=== PATIENT | female | born 1995 | race Caucasian/White ===

== ENCOUNTER 2016-07-13 18:04 | Emergency (ER) | payer BC ==
[~2016-07-13] VITALS: Ht 160 cm; Wt 64.5 kg
--- OUTSIDE RECORDS SUMMARY | 2016-07-13 18:09 | XMS REPORT | Summary of Care ---
Author Author Dejuan Pereyra M.D. Organization Unknown Address [address], [place] [id number] Phone Unavailable Care Team Providers Care Lead Setter Name Role Phone Rad Pereyra M.D. Unavailable Unavailable Marcin Nickerson PP Unavailable Unavailable Unavailable Functional Status Functional Status Health Issues* Name Dates Details Functional status health issues are not documented Status: Cognitive Status Health Issues* Name Dates Details Cognitive status health issues are not documented Status: Problems Name Dates Details control (V25.9, Z30.9) Status: Active Dizziness (780.4, R42) Status: Active Cellulitis (682.9, L03.90) Status: Active Depression (311, F32.9) Status: Active Contraceptive management (V25.9, Z30.9) Status: Active Dysuria (788.1, R30.0) Status: Active PID (acute pelvic inflammatory disease) (614.3, N73.0) Status: Active Pelvic pain (R10.2) Status: Active Encounter for prescription for intravaginal contraceptive (V25.49, Z30.018) Status: Active Urinary frequency (788.41, R35.0) Status: Active Medications Name Dates Details NuvaRing 0.12-0.015 MG/24HR Vaginal Ring INSERT 1 RING VAGINALLY FOR 3 WEEKS THEN 1 WEEK OFF. Quantity: 1 Dejuan Pereyra M.D.* Started 19-Apr-2015 Active Allergies and Adverse Reactions Name Dates Details No Known Drug Allergies Status: Active Procedures Procedure Dates Details Procedures not documented Immunization Name Dates Details Hepatitis B Administered on:1996 DTaP Administered on:1996 Hepatitis B Administered on:1996 IPV Administered on:1996 IPV Administered on:1996 DTaP Administered on:1996 DTaP Administered on:1996 Hepatitis B Administered on:1996 DTaP Administered on:16-Feb-1997 MMR Administered on:16-Feb-1997 DTaP Administered on:02-Jan-2001 IPV Administered on:02-Jan-2001 MMR Administered on:02-Jan-2001 Varicella Administered on:02-Jan-2001 Tdap (Adacel) Lot #: [id number] Administered on:01-Dec-2013 Family History Grandmother* Name Dates Details Family history of malignant neoplasm of kidney (V16.51, Z80.51) Status: Active Mother* Name Dates Details No pertinent family history Status: Active Social History Name Dates Details Smoking Status* Never smoker Vital Signs Date Test Result Details No Known Vitals to report Results Date Description Value Details Results not documented Plan of Care Planned Observations* Name Dates Details Planned Goals not documented Goal Planned Encounters* Appointment; Provider: Schedule Radiology On 11-Apr-2015 10:00 Instructions * Instructions not documented Encounters Appointment; Zane Drummond Encounter Diagnosis: Problem not documented On 26-Apr-2015 13:00 Appointment; Dejuan Pereyra Encounter Diagnosis: Problem not documented On 11-Apr-2015 11:00 Appointment; Dhruv Nickerson Encounter Diagnosis: Problem not documented On 03-Apr-2015 15:00 Appointment; Dhruv Nickerson Encounter Diagnosis: Problem not documented On 15-Mar-2015 14:45 Appointment; Dhruv Nickerson Encounter Diagnosis: Problem not documented On 07-Feb-2015 11:15 Appointment; Dhruv Nickerson Encounter Diagnosis: Problem not documented On 11-Jan-2015 14:45 Appointment; Dhruv Nickerson Encounter Diagnosis: Problem not documented On 13:45 Appointment; Dejuan Pereyra Encounter Diagnosis: Problem not documented On 22-Feb-2014 10:15 Appointment; Dejuan Pereyra Encounter Diagnosis: Problem not documented On 18-Jan-2014 10:15 Appointment; Dejuan Pereyra Encounter Diagnosis: Problem not documented On 05-Jan-2014 15:30 Appointment; Dejuan Pereyra Encounter Diagnosis: Problem not documented On 29-Dec-2013 15:30 Appointment; Dejuan Pereyra Encounter Diagnosis: Problem not documented On 15-Dec-2013 11:00 Appointment; Dejuan Pereyra Encounter Diagnosis: Problem not documented On 08-Dec-2013 15:30 Appointment; Dejuan Pereyra Encounter Diagnosis: Problem not documented On 01-Dec-2013 11:15 Appointment; Dejuan Pereyra Encounter Diagnosis: Problem not documented On 25-Nov-2013 13:00 Appointment; Dejuan Pereyra Encounter Diagnosis: Problem not documented On 09-Nov-2013 13:00 Appointment; Dejuan Pereyra Encounter Diagnosis: Problem not documented On 14:15 Appointment; Dejuan Pereyra Encounter Diagnosis: Problem not documented On 10:30 Appointment; Dejuan Pereyra Encounter Diagnosis: Problem not documented On 13:00 Appointment; Dejuan Pereyra Encounter Diagnosis: Problem not documented On 10:00
--- OUTSIDE RECORDS SUMMARY | 2016-07-13 18:09 | XMS REPORT | Summary of Care ---
Author Author Dhruv Nickerson M.D. Organization Unknown Address [address], [place] [id number] Phone Unavailable Care Team Providers Care Welfare Eligibility Interviewer Name Role Phone Dhruv Nickerson M.D. Unavailable Unavailable Marcin Nickerson PP Unavailable [...] pelvic inflammatory disease) (614.3, N73.0) Status: Active Medications Name Dates Details Loestrin 1/20 (21) 1-20 MG-MCG Oral Tablet TAKE 1 TABLET DAILY. Quantity: 1 Dhruv Nickerson M.D.* Started 11-Jan-2015 [id number] Tablet Disp Pack (5 Disp Packs) Sertraline HCl - 50 MG Oral Tablet TAKE 1 TABLET DAILY DIRECTED. * Quantity: 30 Refills: 3 Dhruv Nickerson M.D.* Started 11-Jan-2015 ActiveDoxycycline Hyclate 100 MG Oral Capsule TAKE 1 CAPSULE EVERY 12 HOURS DAILY. * Quantity: 20 Refills: 0 Dhruv Nickerson M.D.* Started 07-Feb-2015 Active Allergies and Adverse Reactions Name Dates Details No Known Drug Allergies Status: Active Procedures Procedure Dates Details Urine Chlamydia/GC TMA Assay [id number] Ordered:07-Feb-2015 Immunization Name Dates Details Hepatitis B Administered on:1996 DTaP Administered on:1996 Hepatitis B Administered on:1996 IPV Administered on:1996 IPV Administered on:1996 DTaP Administered on:1996 DTaP Administered on:1996 Hepatitis B Administered on:1996 DTaP Administered on:16-Feb-1997 MMR Administered on:16-Feb-1997 DTaP Administered on:02-Jan-2001 IPV Administered on:02-Jan-2001 MMR Administered on:02-Jan-2001 Varicella Administered on:02-Jan-2001 Tdap (Adacel) Lot #: [id number] Administered on:01-Dec-2013 Social History Smoking Status* Unknown if ever smoked Vital Signs Date Test Result Details 07-Feb-2015 11:11 BP Systolic 115 mm[Hg] Status: BP Diastolic 54 mm[Hg] Status: Temperature 99.3 f Status: Heart Rate 102 /min Status: Respiration Rate 18 /min Status: Weight 152 lb Status: 11-Jan-2015 14:38 BP Systolic 131 mm[Hg] Status: BP Diastolic 79 mm[Hg] Status: Heart Rate 112 /min Status: Respiration Rate 20 /min Status: Weight 153 lb Status: Results Date Description Value Details 07-Feb-2015 11:13 Urinalysis, reflex to Micro and Culture ([facility]) 8016 pH 7.0 (Better) Range: 5.0-7.5 SP GRAVITY 1.020 (Better) Range: 1.010-1.030 APPEARANCE Clear (Better) Range: Clear COLOR Yellow (Better) Range: Straw-Yellow PROTEIN Negative mg/dL (Better) Range: Negative-Trace GLUCOSE Negative mg/dL (Better) Range: Negative KETONES Negative mg/dL (Better) Range: Negative BILIRUBIN Negative (Better) Range: Negative BLOOD Negative (Better) Range: Negative UROBIL 0.2 EU/dL (Better) Range: 0.2-1.0 NITRITE Negative (Better) Range: Negative LEUKOCYTES Negative (Better) Range: Negative Plan of Care Planned Observations* Name Dates Details Planned Goals not documented Goal Planned Encounters* Appointment; Provider: Dhruv Nickerson On 15-Mar-2015 14:45 Instructions * Instructions not documented Encounters Appointment; Dhruv Nickerson Encounter Diagnosis: Problem not [...] Encounter Diagnosis: Problem not documented On 10:00 Appointment; Maico Russell Encounter Diagnosis: Problem not documented On 17-Jun-2013 09:30
--- OUTSIDE RECORDS SUMMARY | 2016-07-13 18:09 | XMS REPORT | Summary of Care ---
Author Author Maico Russell D.O. Organization Unknown Address [address], [place] [id number] Phone Unavailable Care Team Providers Care Clinical Informatics Strategist Name Role Phone Rad Pereyra M.D. Unavailable Unavailable Maico Russell D.O. Unavailable Unavailable Maico Russell PP Unavailable Unavailable Unavailable Functional Status Functional Status Health Issues* Name Dates Details Functional status health issues are not documented Status: Cognitive Status Health Issues* Name Dates Details Cognitive status health issues are not documented Status: Problems Name Dates Details Dizziness (780.4, R42) Status: Active Cellulitis (682.9, L03.90) Status: Active Contraceptive management (V25.9, Z30.9) Status: Active Dysuria (788.1, R30.0) Status: Active PID (acute pelvic inflammatory disease) (614.3, N73.0) Status: Active Pelvic pain (R10.2) Status: Active Encounter for prescription for intravaginal contraceptive (V25.49, Z30.018) Status: Active Urinary frequency (788.41, R35.0) Status: Active Vaginal odor (625.8, N89.8) Status: Active Diminished libido (799.81, R68.82) Status: Active Palpitations (785.1, R00.2) Status: Active Depression with anxiety (300.4, F41.8) Status: Active Night sweats (780.8, R61) Status: Active Medications Name Dates Details NuvaRing 0.12-0.015 MG/24HR Vaginal Ring INSERT 1 RING VAGINALLY FOR 3 WEEKS THEN 1 WEEK OFF. Quantity: 1 Dejuan Pereyra M.D.* Started 19-Apr-2015 ActiveVenlafaxine HCl - 37.5 MG Oral Tablet TAKE 1 TABLET DAILY, may increase to 2 tabs po daily after 1 week if desired * Quantity: 60 Refills: 0 Maico Russell D.O.* Started Active Allergies and Adverse Reactions Name Dates [...] Varicella Administered on:02-Jan-2001 Tdap (Adacel) Lot #: [id number] Administered on:01-Dec-2013 Family History Grandmother* Name Dates Details Family history of malignant neoplasm of kidney (V16.51, Z80.51) Status: Active Mother* Name Dates Details No pertinent family history Status: Active Social History Name Dates Details Smoking Status* Never smoker Vital Signs Date Test Result Details 09:58 BP Systolic 130 mm[Hg] Status: BP Diastolic 72 mm[Hg] Status: Heart Rate 80 /min Status: Weight 155.375 lb Status: 12:51 BP Systolic 124 mm[Hg] Status: BP Diastolic 78 mm[Hg] Status: Heart Rate 80 /min Status: Height 63.5 in Status: Weight 150.3125 lb Status: Body Mass Index Calculated 26.21 kg/m2 Status: Body Surface Area Calculated 1.72 m2 Status: Results Date Description Value Details Results not documented Plan of Care Planned Observations* Name Dates Details Planned Goals not documented Goal Planned Encounters* Appointment; Provider: Maico Russell On 27-Nov-2015 14:00 * Appointment; Provider: Schedule Radiology On 11-Apr-2015 10:00 Instructions * Instructions not documented Encounters Appointment; Maico Russell Encounter Diagnosis: Problem not documented On 09:45 Appointment; Maico Russell Encounter Diagnosis: Problem not documented On 13:00 Appointment; Dejuan Pereyra Encounter Diagnosis: Problem not documented On 14:15 Appointment; Zane Drummond Encounter Diagnosis: Problem not documented On 26-Apr-2015 13:00 Appointment; Dejuan Pereyra Encounter Diagnosis: Problem not documented On 11-Apr-2015 11:00 Appointment; Dhruv Nickerson Diagnosis: Problem not documented On 03-Apr-2015 15:00 [...]
--- OUTSIDE RECORDS SUMMARY | 2016-07-13 18:09 | XMS REPORT ---
Author Author GENERATED, SYSTEM Organization Unknown Address Unknown Phone Unavailable Care Team Providers Care Payment Analyst Name Role Phone MD TAHMINA, SHERRI WALTON Unavailable Reason For Visit Chief Complaint DEMISE,INDUCTION Social History Functional Status Vital Signs Hospital Vital Signs from 01/07/2014 10:40 AM:* Height : /65 ft,in Results Chemistry from 01/08/2014 2:21 AMMAGNESIUM 4.1 MG/DL H (1.8-2.4 MG/DL) Chemistry from 01/07/2014 7:56 PMMAGNESIUM 3.5 MG/DL H (1.8-2.4 MG/DL) Chemistry from 01/07/2014 2:09 PMMAGNESIUM 4.6 MG/DL H (1.8-2.4 MG/DL) Chemistry from 01/07/2014 5:44 AMSODIUM 137 MMOL/L (136-145 MMOL/L) POTASSIUM 3.6 MMOL/L (3.5-5.1 MMOL/L) CHLORIDE 106 MMOL/L (98-107 MMOL/L) TCO2 23.8 MMOL/L (21.0-32.0 MMOL/L) ANION GAP 7.2 MMOL/L L (8.0-16.0 MMOL/L) BUN 9 MG/DL (7-18 MG/DL) CREATININE 0.65 MG/DL (0.43-0.83 MG/DL) BUN/CREATININE RATIO 13.8 (9.1-17.0 ) GLUCOSE 79 MG/DL (65-99 MG/DL) CALCIUM 9.0 MG/DL (8.5-10.1 MG/DL) BILIRUBIN TOTAL 0.27 MG/DL (0.20-1.00 MG/DL) TOTAL PROTEIN 6.8 GM/DL (6.4-8.2 GM/DL) ALBUMIN 3.0 GM/DL L (3.4-5.0 GM/DL) GLOBULIN 3.8 GM/DL H (2.3-3.5 GM/DL) A/G RATIO 0.8 MG/DL L (1.5-2.2 MG/DL) ALK PHOS 109 U/L (46-116 U/L) ALT (SGPT) 16 U/L (12-78 U/L) AST (SGOT) 19 U/L (15-37 U/L) MAGNESIUM 1.6 MG/DL L (1.8-2.4 MG/DL) URIC ACID 4.8 MG/DL (2.6-6.0 MG/DL) Hematology from 01/08/2014 2:21 AMWBC 10.7 X10e3/UL (3.6-11.2 X10e3/UL) RBC 3.02 X10e6/UL L (3.63-4.92 X10e6/UL) HEMOGLOBIN 10.5 G/DL L (11.0-14.3 G/DL) HEMATOCRIT 29.1 % L (31.2-41.9 %) MCV 96.5 FL (79.0-98.0 FL) MCH 34.7 PG H (27.0-33.0 PG) MCHC 35.9 G/DL (32.0-36.0 G/DL) RDW 12.7 % (12.3-17.0 %) RDWSD 42.9 (37.1-47.8 ) PLATELET 191 X10e3/UL (159-386 X10e3/UL) MPV 8.7 FL (7.4-10.4 FL) AUTOMATED DIFF PERFORMED SEGS 67.1 % LYMPHOCYTES 20.4 % MONOCYTES 10.8 % EOSINOPHILS 1.0 % BASOPHILS 0.7 % ABSOLUTE NEUTROPHILS 7.2 X10e3/UL (1.8-7.8 X10e3/UL) ABSOLUTE LYMPHOCYTES 2.2 X10e3/UL (1.0-3.0 X10e3/UL) ABSOLUTE MONOCYTES 1.2 X10e3/UL H (0.3-1.0 X10e3/UL) ABSOLUTE EOSINOPHILS 0.1 X10e3/UL (0.0-0.5 X10e3/UL) ABSOLUTE BASOPHILS 0.1 X10e3/UL (0.0-0.2 X10e3/UL) Hematology from 01/07/2014 7:23 AMWBC 11.9 X10e3/UL H (3.6-11.2 X10e3/UL) RBC 3.42 X10e6/UL L (3.63-4.92 X10e6/UL) HEMOGLOBIN 11.7 G/DL (11.0-14.3 G/DL) HEMATOCRIT 32.8 % (31.2-41.9 %) MCV 96.1 FL (79.0-98.0 FL) MCH 34.3 PG H (27.0-33.0 PG) MCHC 35.7 G/DL (32.0-36.0 G/DL) RDW 12.8 % (12.3-17.0 %) RDWSD 43.3 (37.1-47.8 ) PLATELET 209 X10e3/UL (159-386 X10e3/UL) MPV 8.9 FL (7.4-10.4 FL) MANUAL DIFF PERFORMED SEGS 80.0 % BANDS 2.0 % LYMPHOCYTES 13.0 % MONOCYTES 3.0 % EOSINOPHILS 2.0 % BASOPHILS 0.0 % ABSOLUTE NEUTROPHILS 9.8 X10e3/UL H (1.8-7.8 X10e3/UL) ABSOLUTE LYMPHOCYTES 1.5 X10e3/UL (1.0-3.0 X10e3/UL) ABSOLUTE MONOCYTES 0.4 X10e3/UL (0.3-1.0 X10e3/UL) ABSOLUTE EOSINOPHILS 0.2 X10e3/UL (0.0-0.5 X10e3/UL) ABSOLUTE BASOPHILS 0.0 X10e3/UL (0.0-0.2 X10e3/UL) Hematology from 01/07/2014 5:44 AMPLATELET 207 X10e3/UL (159-386 X10e3/UL) Hematology from 01/06/2014 4:07 PMWBC 9.7 X10e3/UL (3.6-11.2 X10e3/UL) RBC 3.36 X10e6/UL L (3.63-4.92 X10e6/UL) HEMOGLOBIN 11.7 G/DL (11.0-14.3 G/DL) HEMATOCRIT 32.1 % (31.2-41.9 %) MCV 95.6 FL (79.0-98.0 FL) MCH 34.7 PG H (27.0-33.0 PG) MCHC 36.3 G/DL H (32.0-36.0 G/DL) RDW 12.6 % (12.3-17.0 %) RDWSD 42.4 (37.1-47.8 ) PLATELET 246 X10e3/UL (159-386 X10e3/UL) MPV 9.0 FL (7.4-10.4 FL) AUTOMATED DIFF PERFORMED SEGS 72.4 % LYMPHOCYTES 17.7 % MONOCYTES 8.3 % EOSINOPHILS 1.0 % BASOPHILS 0.6 % ABSOLUTE NEUTROPHILS 7.0 X10e3/UL (1.8-7.8 X10e3/UL) ABSOLUTE LYMPHOCYTES 1.7 X10e3/UL (1.0-3.0 X10e3/UL) ABSOLUTE MONOCYTES 0.8 X10e3/UL (0.3-1.0 X10e3/UL) ABSOLUTE EOSINOPHILS 0.1 X10e3/UL (0.0-0.5 X10e3/UL) ABSOLUTE BASOPHILS 0.1 X10e3/UL (0.0-0.2 X10e3/UL) Urinalysis from 01/07/2014 12:50 PM* Status: Final Result URINALYSIS Specimen Number: [id number] Sample Collection Date/Time: 01/07/2014 12:50 PM Specimen Source: URINE COLOR STRAW (STRAW/YELL/DK YELL ) URINE APPEARANCE CLEAR (CLEAR ) URINE PH 5.5 (5.0-8.0 ) URINE SPECIFIC GRAVITY >1.030 (<=1.005->=1.030 ) URINE GLUCOSE NEGATIVE MG/DL (NEGATIVE MG/DL) URINE BILIRUBIN NEGATIVE (NEGATIVE ) URINE KETONES 15 MG/DL A (NEGATIVE MG/DL) URINE BLOOD NEGATIVE (NEGATIVE ) URINE PROTEIN NEGATIVE MG/DL (NEGATIVE MG/DL) URINE UROBILINOGEN 0.2 EU/DL (0.2-1.0 EU/DL) URINE NITRITES NEGATIVE (NEGATIVE ) *URINE LEUKOCYTES NEGATIVE (NEGATIVE ) Coagulation from 01/07/2014 5:44 AMPROTHROMBIN TIME 9.4 SECONDS (9.4-11.5 SECONDS ) INR 0.9 PARTIAL THROMBOPLASTIN TIME 25.6 SECONDS (22.0-28.0 SECONDS) FIBRINOGEN 468.5 MG/DL H (200.0-450.0 MG/DL) D-DIMER 1.74 MG/L FEU H (0.00-0.50 MG/L FEU) DX Radiology from 01/07/2014 5:23 PMINFANT BONE SURVEY <12mo (Preliminary Result)DATE OF EXAM: Jan 07 2014 7:11PM Proc: DG 4225 - INFANT BONE SURVEY <12MO CPT Code(s): 94392-; ; ; INDICATION / CLINICAL HISTORY: Stillborn, demise. FINDINGS: The axial and appendicular skeleton of the fetus appear intact. No skeletal abnormalities are identified. No fractures are identified. There is mild deformity of the skull secondary to process. IMPRESSION: Unremarkable skeletal survey. Problems Encounter Diagnosis * Comment:Problem resolved by [facility] Workflow upon Discharge, Status:Resolved. Encounters Encounter Diagnosis * Comment:Problem resolved by [facility] Workflow upon Discharge, Status:Resolved. Plan of Care Treatment Plan from 01/08/2014 2:27 PM:* Care Management Note : Spoke with patient regarding any supportive services she may want due to loss of baby. She states she has a good support network and not in need of any counseling or support group. Information provided to her if she later changes her mind on how to get connected with services. Procedures No relevant procedures performed. Immunizations No immunizations administered or ordered. Hospital Course Hospital Discharge Instructions Allergies, Adverse Reactions, Alerts * No Latex Allergy. * No IV Contrast Allergy. * No Known Drug Allergies. Medication It is the responsibility of the patient or patient physician relations representative to confirm the list of medications with either the patient's personal care provider or the patient's follow-up care provider to ensure the patient has an appropriate list of medications to take at home. Discharge medications New medications* IBUPROFEN (MOTRIN) 800 MG=1 TABLET By Mouth Q8HP PRN PAIN, Clinician Dir:DO NOT GIVE IF PATIENT RECEIVING KETOROLAC. GIVE NEEDED FOR PAIN. Directions: oral every eight hours PRN PAIN Additional Instructions: DO NOT GIVE IF PATIENT RECEIVING KETOROLAC. GIVE NEEDED FOR PAIN. * HYDROcodone-acetaminophen ([place]) 5 mg-325 mg Tablet, Ordered By: BERRY PIRES RN Directions: 1 tablet oral every four hours PRN pain Continued medications* PNV Stopped medications* None
--- OUTSIDE RECORDS SUMMARY | 2016-07-13 18:09 | XMS REPORT | Summary of Care ---
Author Author Dhruv Nickerson M.D. Organization Unknown Address [address], [place] [id number] Phone Unavailable Care Team Providers Care Montessori Toddler Teacher Name Role Phone Dhruv Nickerson M.D. Unavailable [...] Status: Active Dysuria (788.1, R30.0) Status: Active Medications Name Dates Details Loestrin 1/20 (21) 1-20 MG-MCG Oral Tablet TAKE 1 TABLET DAILY. Quantity: 1 Dhruv Nickerson M.D.* Started 11-Jan-2015 [id number] Tablet Disp Pack (5 Disp Packs) Sertraline HCl - 50 MG Oral Tablet TAKE 1 TABLET DAILY DIRECTED. * Quantity: 30 Refills: 3 Dhruv Nickerson M.D.* Started 11-Jan-2015 Active Allergies and Adverse Reactions Name Dates Details No Known Drug Allergies Status: Active Procedures Procedure Dates Details Urinalysis, reflex to Micro and Culture ([facility]) 8016 Ordered: Immunization Name Dates Details Hepatitis B Administered on:1996 DTaP Administered on:1996 Hepatitis B Administered on:1996 IPV Administered on:1996 IPV Administered on:1996 DTaP Administered on:1996 DTaP Administered on:1996 Hepatitis B Administered on:1996 DTaP Administered on:16-Feb-1997 MMR Administered on:16-Feb-1997 DTaP Administered on:02-Jan-2001 IPV Administered on:02-Jan-2001 MMR Administered on:02-Jan-2001 Varicella Administered on:02-Jan-2001 Tdap (Adacel) Lot #: [id number] Administered on:01-Dec-2013 Social History Smoking Status* Unknown [...] lb Status: Results Date Description Value Details Results [...]
--- OUTSIDE RECORDS SUMMARY | 2016-07-13 18:09 | XMS REPORT | Summary of Care ---
Author Author Dhruv Nickerson M.D. Organization Unknown Address [address], [place] [id number] Phone Unavailable Care Team Providers Care Death Clearance Coordinator Name Role Phone Dhruv Nickerson M.D. Unavailable [...] Status: Active Medications Name Dates Details Loestrin 04/26 (21) 1-20 MG-MCG Oral Tablet TAKE 1 TABLET DAILY. Quantity: 1 Dhruv Nickerson M.D.* Started 11-Jan-2015 [id number] Tablet Disp Pack (5 Disp Packs) Sertraline HCl - 50 MG Oral Tablet TAKE 1 TABLET DAILY DIRECTED. * Quantity: 30 Refills: 3 Dhruv Nickerson M.D.* Started 11-Jan-2015 ActiveDoxycycline Hyclate 100 MG Oral Capsule TAKE 1 CAPSULE EVERY 12 HOURS DAILY. * Quantity: 20 Refills: 0 Dhruv Nickerson M.D.* Started 07-Feb-2015 ActiveDoxycycline Hyclate 100 MG Oral Capsule TAKE 1 CAPSULE EVERY 12 HOURS DAILY. * Quantity: 20 Refills: 0 Dhruv Nickerson M.D.* Started 03-Apr-2015 Active Allergies and Adverse Reactions Name Dates Details No Known Drug Allergies Status: Active Procedures Procedure Dates Details ULTRASOUND PELVIC SONO Ordered:03-Apr-2015 Immunization Name Dates Details Hepatitis B Administered on:1996 DTaP Administered on:1996 Hepatitis B Administered on:1996 IPV Administered on:1996 IPV Administered on:1996 DTaP Administered on:1996 DTaP Administered on:1996 Hepatitis B Administered on:1996 DTaP Administered on:16-Feb-1997 MMR Administered on:16-Feb-1997 DTaP Administered on:02-Jan-2001 IPV Administered on:02-Jan-2001 MMR Administered on:02-Jan-2001 Varicella Administered on:02-Jan-2001 Tdap (Adacel) Lot #: [id number] Administered on:01-Dec-2013 Social History Smoking Status* Unknown if ever smoked Vital Signs Date Test Result Details 03-Apr-2015 15:17 BP Systolic 128 mm[Hg] Status: BP Diastolic 84 mm[Hg] Status: Temperature 98.5 f Status: Heart Rate 94 /min Status: Respiration Rate 18 /min Status: Weight 157 lb Status: Results Date Description Value Details Results not documented Plan of Care Planned Observations* Name Dates Details Planned Goals not documented Goal Planned Encounters* Appointment; Provider: Dejuan Pereyra On 11-Apr-2015 13:45 Instructions * Instructions not documented Encounters Appointment; [...] Problem not documented On 13:00 Appointment; Dejuan Pererya Encounter Diagnosis: Problem not documented On 10:00 Appointment; Maico Russell Encounter Diagnosis: Problem not documented On 17-Jun-2013 09:30
--- OUTSIDE RECORDS SUMMARY | 2016-07-13 18:09 | XMS REPORT | Summary of Care ---
Author Author Dhruv Nickerson M.D. Organization Unknown Address [address], [place] [id number] Phone Unavailable Care Team Providers Care Medication Aide Name Role Phone Dhruv Nickerson M.D. Unavailable [...] Active Contraceptive management (V25.9, Z30.9) Status: Active Medications Name Dates Details Loestrin 1/20 (21) 1-20 MG-MCG Oral Tablet TAKE 1 TABLET DAILY. Quantity: 1 Dhruv Nickerson M.D.* Started 11-Jan-2015 [id number] Tablet Disp Pack (5 Disp Packs) Sertraline [...] Varicella Administered on:02-Jan-2001 Tdap (Adacel) Lot #: [id number] Administered on:01-Dec-2013 Social History Smoking Status* Unknown if ever smoked Vital Signs Date Test Result Details 11-Jan-2015 14:38 BP Systolic 131 mm[Hg] Status: [...]
--- OUTSIDE RECORDS SUMMARY | 2016-07-13 18:09 | XMS REPORT | Summary of Care ---
Author Author Dejuan Pereyra M.D. Organization Unknown Address [address], [place] [id number] Phone Unavailable Care Team Providers Care Brim Welt Sewing Machine Operator Name Role Phone Rad Pereyra M.D. Unavailable Unavailable Marcin Nickerson PP Unavailable Unavailable Unavailable Functional Status Functional Status Health Issues* Name Dates Details Functional status health issues are not documented Status: Cognitive Status Health Issues* Name Dates Details Cognitive status health issues are not documented Status: Problems Name Dates Details Active medical history not documented Status: Medications Name Dates Details /Folic Acid Oral Tablet TAKE 1 TABLET DAILY. Quantity: 30 Dejuan Pereyra M.D.* Started Active Allergies and Adverse Reactions Name [...] Varicella Administered on:02-Jan-2001 Tdap (Adacel) Lot #: [id number] Administered on:01-Dec-2013 Social History Smoking Status* Unknown if ever smoked Vital Signs Date Test Result Details No Known Vitals to report Results Date Description Value Details Results not documented Plan of Care Planned Observations* Name Dates Details Planned Goals not documented Goal Instructions * Instructions not documented Encounters Appointment; Dejuan Pereyra Encounter Diagnosis: Problem not documented On 22-Feb-2014 10:15 Appointment; Dejuan Pereyra Encounter Diagnosis: Problem not documented On 18-Jan-2014 10:15 Appointment; Dejuan Pereyra Encounter Diagnosis: Problem not documented On 05-Jan-2014 15:30 Appointment; Dejaun Pereyra Encounter Diagnosis: Problem not documented On 29-Dec-2013 15:30 Appointment; Dejuan Pereyra Encounter Diagnosis: Problem not documented On 15-Dec-2013 11:00 Appointment; Dejuan Pereyra Encounter Diagnosis: Problem not documented On 08-Dec-2013 15:30 Appointment; Dejuan Pereyra Encounter Diagnosis: Problem not documented On 01-Dec-2013 11:15 Appointment; Dejuan Pereyar Encounter Diagnosis: Problem not documented On 25-Nov-2013 [...] Diagnosis: Problem not documented On 17-Jun-2013 09:30 Appointment; Dhruv Nickerson Encounter Diagnosis: Problem not documented On 27-Nov-2012 15:00 Appointment; Janett Nicole Encounter Diagnosis: Problem not documented On 21-May-2012 08:30
--- OUTSIDE RECORDS SUMMARY | 2016-07-13 18:10 | XMS REPORT | Summary of Care ---
Author Author Dhruv Nickerson M.D. Organization Unknown Address [address], [place] [id number] Phone Unavailable Care Team Providers Care Wad Impregnator Name Role Phone Dhruv Nickerson M.D. Unavailable Unavailable Roddy Rod, Rad Unavailable Unavailable Marcin Nickerson PP Unavailable Unavailable Unavailable Functional Status Functional Status Health Issues* Name Dates Details Functional status health issues are not documented Status: Cognitive Status Health Issues* Name Dates Details Cognitive status health issues are not documented Status: Problems Name Dates Details control (V25.9, Z30.9) Status: Active Dizziness (780.4, R42) Status: Active Cellulitis (682.9, L03.90) Status: Active Medications Name Dates Details NuvaRing 0.12-0.015 MG/24HR Vaginal Ring INSERT ONE RING PER VAGINA FOR 3 WEEKS OUT OF 4 Quantity: 3 Dejuan Pereyra M.D.* Started 04-Jul-2014 ActiveCephalexin 500 MG Oral Capsule TAKE 1 CAPSULE 3 TIMES DAILY UNTIL GONE. * Quantity: 30 Refills: 0 Dhruv Nickerson M.D.* Started ActiveMeclizine HCl - 25 MG Oral Tablet TAKE 1 TABLET 3 TIMES DAILY NEEDED FOR DIZZINESS. * Quantity: 30 Refills: 0 Dhruv Nickerson M.D.* Started Active Allergies and Adverse Reactions Name Dates Details No Known Drug Allergies Status: Active Procedures Procedure Dates Details CBC w/ Auto Diff 7150 Ordered: Comprehensive Metabolic Panel 1212 Ordered: FREE T4 3604 Ordered: THYROID STIM. HORMONE 3602 Ordered: SERUM TEST 8020 Ordered: Immunization Name Dates Details Hepatitis B Administered on:1996 DTaP Administered on:1996 Hepatitis B Administered on:1996 IPV Administered on:1996 IPV Administered on:1996 DTaP Administered on:1996 DTaP Administered on:1996 Hepatitis B Administered on:1996 DTaP Administered on:16-Feb-1997 MMR Administered on:16-Feb-1997 DTaP Administered on:02-Jan-2001 IPV Administered on:02-Jan-2001 MMR Administered on:02-Jan-2001 Varicella Administered on:02-Jan-2001 Tdap (Adacel) Lot #: [id number] Administered on:01-Dec-2013 Social History Smoking Status* Unknown if ever smoked Vital Signs Date Test Result Details 13:44 BP Systolic 120 mm[Hg] Status: BP Diastolic 74 mm[Hg] Status: Heart Rate 80 /min Status: Respiration Rate 20 /min Status: Temperature 98.7 f Status: Weight 146 lb Status: Results Date Description Value Details [...] not documented On 09-Nov-2013 13:00 Appointment; Dejuan Pereyar Encounter Diagnosis: Problem not documented On 14:15 [...]
--- OUTSIDE RECORDS SUMMARY | 2016-07-13 18:10 | XMS REPORT | Summary of Care ---
Author Author Dejuan Pereyra M.D. Organization Unknown Address [address], [place] [id number] Phone Unavailable Care Team Providers Care Breakdown Man Name Role Phone Rad Pereyra M.D. Unavailable [...] Active Diminished libido (799.81, R68.82) Status: Active Night sweats (780.8, R61) Status: Active Medications Name Dates Details NuvaRing 0.12-0.015 MG/24HR Vaginal Ring INSERT 1 RING VAGINALLY FOR 3 WEEKS THEN 1 WEEK OFF. Quantity: 1 Dejuan Pereyra M.D.* Started 19-Apr-2015 ActiveBuPROPion HCl - 100 MG Oral Tablet TAKE 1 TABLET DAILY. * Quantity: 30 Refills: 0 Dejuan Pereyra M.D.* Started Active Allergies and Adverse Reactions Name Dates Details No Known Drug Allergies Status: Active Procedures Procedure Dates Details FREE T4 3604 Ordered: FERRITIN 3025 Ordered: Immunization Name Dates Details Hepatitis B Administered on:1996 DTaP Administered on:1996 Hepatitis B Administered on:1996 IPV Administered on:1996 IPV Administered on:1996 DTaP Administered on:1996 DTaP Administered on:1996 Hepatitis B Administered on:1996 DTaP Administered on:16-Feb-1997 MMR Administered on:16-Feb-1997 DTaP Administered on:02-Jan-2001 IPV Administered on:02-Jan-2001 MMR Administered on:02-Jan-2001 Varicella Administered on:02-Jan-2001 Tdap (Adacel) Lot #: [id number] Administered on:01-Dec-2013 Family History Grandmother* Name Dates Details Family history of malignant neoplasm of kidney (V16.51, Z80.51) Status: Active Mother* Name Dates Details No pertinent family history Status: Active Social History Name Dates Details Smoking Status* Never smoker Vital Signs Date Test Result Details 13:55 BP Systolic 122 mm[Hg] Status: BP Diastolic 70 mm[Hg] Status: Weight 157 lb Status: Results Date Description Value Details 16:15 Urinalysis, reflex to Micro and Culture ([facility]) 8016 pH 6.0 (Better) Range: 5.0-7.5 SP GRAVITY 1.020 (Better) Range: 1.010-1.030 APPEARANCE Cloudy (Abnormal) Range: Clear COLOR Straw (Better) Range: Straw-Yellow PROTEIN Negative mg/dL (Better) Range: Negative-Trace GLUCOSE Negative mg/dL (Better) Range: Negative KETONES Negative mg/dL (Better) Range: Negative BILIRUBIN Negative (Better) Range: Negative BLOOD Negative (Better) Range: Negative UROBIL 0.2 EU/dL (Better) Range: 0.2-1.0 NITRITE Negative (Better) Range: Negative LEUKOCYTES 1+ (Abnormal) Range: Negative 17:16 Urine Microscopic UMIC WBC 6-10 /HPF (Abnormal) Range: 0-5 Comments: Specimen referred to Microbiology for Culture----- MUCUS 1+ /LPF (Better) Range: Negative-2+ BACTERIA 1+ /HPF (Abnormal) Range: Negative-Trace EPITH 11-20 /HPF (Abnormal) Range: 0-10 08:28 URINE CULTURE [id number] Comments: Inside Secure performed at: [facility] Activate NetworksPending Sale To [facility], [address] [facility], [place], [address], Commission Broker: Juan Manuel Barbour D.O., MPHQuest Collection Date/Time: [id number] Results Received Date/Time: [id number] Reported Date/Time: CULTURE, URINE, ROUTINE SEE NOTE (Better) Comments: CULTURE, URINE, ROUTINE MICRO NUMBER: [id number] TEST STATUS: FINAL SPECIMEN SOURCE : URINE SPECIMEN QUALITY: ADEQUATE RESULT: Single organism less than 10,000 CFU/mL isolated. These organisms, commonly found on external and internal genitalia, are considered colonizers. No further testing performed.[RI]----- 14:19 Urinalysis, reflex to Micro and Culture ([facility] ) 8016 pH 6.0 (Better) Range: 5.0-7.5 SP GRAVITY 1.030 (Better) Range: 1.010-1.030 APPEARANCE Clear (Better) Range: Clear COLOR Yellow (Better) Range: Straw-Yellow PROTEIN 15 mg/dL (Abnormal) Range: Negative-Trace GLUCOSE Negative mg/dL (Better) Range: Negative KETONES Negative mg/dL (Better) Range: Negative BILIRUBIN 1+ (Abnormal) Range: Negative BLOOD Negative (Better) Range: Negative UROBIL 1.0 EU/dL (Better) Range: 0.2-1.0 NITRITE Negative (Better) Range: Negative LEUKOCYTES Negative (Better) Range: Negative 15:58 ERYTHROCYTE SED RATE 7800 ERYTHROCYTE SED RATE 5 mm/60 min. (Better) Range: 0-20 16:34 THYROID STIM. HORMONE 3602 Comments: Verified by Repeat Analysis THYROID STIM. HORMONE 0.493 uIU/mL (Below low threshold) Range: 0.550- 4.780 Comments: PLEASE NOTE: Patients undergoing fuorescein dye angiography within the last 72 hours can produce falsely depressed TSH values with current methodology.No established reference ranges for infants and children <2 years of age----- 17:19 Vaginitis Panel ( Trichomonas, Gardnerella, Gege sp.) 5615 T. VAGINALIS PROBE Negative (Better) Range: Negative GARDNERELLA PROBE Negative (Better) Range: Negative GEGE SP. PROBE Negative (Better) Range: Negative Plan of Care [...]
--- OUTSIDE RECORDS SUMMARY | 2016-07-13 18:10 | XMS REPORT | Continuity of Care Document ---
Author Author [facility] Organization [facility] Address Unknown Phone Unavailable Allergies Medications Problems Procedures Results Encounters ACCT No. Visit Date/Time Discharge Status Pt. Type Provider Facility Loc./Unit Complaint [id number] 02/10/2014 00:00:00 2013 00:00:00 CAN Chey Sommers MD, Sera Schulte [facility] W.2WE
--- OUTSIDE RECORDS SUMMARY | 2016-07-13 18:10 | XMS REPORT | Summary of Care ---
Author Author Dejuan Pereyra M.D. [facility] Unknown Address [address], [place] [id number] Phone Unavailable Care Team Providers Care Criminal Justice Lawyer Name Role Phone Dhruv Nickerson M.D. Unavailable [...] Status: Active Pelvic pain (R10.2) Status: Active Medications Name Dates Details Loestrin 1/20 (21) 1-20 MG-MCG Oral Tablet TAKE 1 TABLET DAILY. Quantity: 1 Dhruv Nickerson M.D.* Started 11-Jan-2015 [id number] Tablet Disp Pack (5 Disp Packs) Allergies and Adverse Reactions Name Dates Details [...] Varicella Administered on:02-Jan-2001 Tdap (Adacel) Lot #: [id number] Administered on:01-Dec-2013 Family History Grandmother* Name Dates Details Family history of malignant neoplasm of kidney (V16.51, Z80.51) Status: Active Mother* Name Dates Details No pertinent family history Status: Active Social History Name Dates Details Smoking Status* Never smoker Vital Signs Date Test Result Details 11-Apr-2015 10:40 BP Systolic 102 mm[Hg] Status: BP Diastolic 70 mm[Hg] Status: Weight 156 lb Status: 03-Apr-2015 15:17 BP Systolic 128 mm[Hg] Status: BP Diastolic 84 mm[Hg] Status: Temperature 98.5 f Status: Heart Rate 94 /min Status: Respiration Rate 18 /min Status: Weight 157 lb Status: Results Date Description Value Details 11-Apr-2015 10:32 ULTRASOUND PELVIC SONO Comments: Exam Date: 04/11/2015 09:41Dictation Date: 04/11/2015 10:32 XS PELVIC SONO (Better) Plan of Care Planned Observations* Name Dates Details Planned Goals not documented Goal Planned Encounters* Appointment; Provider: Zane Drummond On 26-Apr-2015 13:00 * Appointment; Provider: Schedule Radiology On 11-Apr-2015 [...]
--- OUTSIDE RECORDS SUMMARY | 2016-07-13 18:10 | XMS REPORT | Summary of Care ---
Author Author Maico Russell D.O. Organization Unknown Address [address], [place] [id number] Phone Unavailable Care Team Providers Care Wet Room Supervisor Name Role Phone Rad Pereyra M.D. Unavailable Unavailable Maico Russell PP Unavailable Unavailable [...] Status: Active Palpitations (785.1, R00.2) Status: Active Night sweats (780.8, R61) Status: Active Depression with anxiety (300.4, F41.8) Status: Active Medications Name Dates Details NuvaRing [...] Varicella Administered on:02-Jan-2001 Tdap (Adacel) Lot #: [id number] Administered on:01-Dec-2013 Family History Grandmother* Name Dates Details Family history of malignant neoplasm of kidney (V16.51, Z80.51) Status: Active Mother* Name Dates Details No pertinent family history Status: Active Social History Name Dates Details Smoking Status* Never smoker Vital Signs Date Test Result Details 12:51 BP Systolic 124 mm[Hg] Status: BP [...] Planned Encounters* Appointment; Provider: Maico Russell On 09:45 * Appointment; Provider: Schedule Radiology On 11-Apr-2015 [...] Problem not documented On 05-Jan-2014 15:30 Appointment; Deujan Pereyra Encounter Diagnosis: Problem not documented On [...]
--- OUTSIDE RECORDS SUMMARY | 2016-07-13 18:10 | XMS REPORT | Summary of Care ---
Author Author Dhruv Nickerson M.D. Organization Unknown Address [address], [place] [phone] Phone Unavailable Care Team Providers Care Entry Level Recruiter Name Role Phone Dhruv Nickerson M.D. Unavailable [...] Quantity: 1 Dhruv Nickerson M.D.* Started 11-Jan-2015 [id number] Tablet Disp Pack (5 Disp Packs) Sertraline [...] Procedure Dates Details Urine Chlamydia/GC TMA Assay [id number] Ordered:07-Feb-2015 Immunization Name Dates Details Hepatitis B Administered on:1996 DTaP Administered on:1996 Hepatitis B Administered on:1996 IPV Administered on:1996 IPV Administered on:1996 DTaP Administered on:1996 DTaP Administered on:1996 Hepatitis B Administered on:1996 DTaP Administered on:16-Feb-1997 MMR Administered on:16-Feb-1997 DTaP Administered on:02-Jan-2001 IPV Administered on:02-Jan-2001 MMR Administered on:02-Jan-2001 Varicella Administered on:02-Jan-2001 Tdap (Adacel) Lot #: [id number] Administered on:01-Dec-2013 Social History Smoking Status* Unknown [...] 11:13 Urinalysis, reflex to Micro and Culture ([facility]) 8016 pH 7.0 (Better) Range: 5.0-7.5 [...]
--- OUTSIDE RECORDS SUMMARY | 2016-07-13 18:10 | XMS REPORT | Summary of Care ---
Author Author Dhruv Nickerson M.D. Organization Unknown Address [address], [place] [address] Phone Unavailable Care Team Providers Care Clinical Statistics Manager Name Role Phone Dhruv Nickerson M.D. Unavailable [...] Quantity: 1 Dhruv Nickerson M.D.* Started 11-Jan-2015 [id number] Tablet Disp Pack (5 Disp Packs) Sertraline [...] Varicella Administered on:02-Jan-2001 Tdap (Adacel) Lot #: [id number] Administered on:01-Dec-2013 Social History Smoking Status* Unknown [...]
--- OUTSIDE RECORDS SUMMARY | 2016-07-13 18:10 | XMS REPORT | Summary of Care ---
Author Author Maico Russell D.O. Organization Unknown Address [address], [place] [phone] Phone Unavailable Care Team Providers Care Jewel Inspector Name Role Phone Rad Pereyra M.D. Unavailable Unavailable Maico Russell D.O. Unavailable Unavailable Zane Russell Unavailable Unavailable Unavailable Unavailable Functional Status Name Dates Details Functional status health issues are not documented Status: Name Dates Details Cognitive status health issues [...] 1 WEEK OFF. Quantity: 1 Dejuan Pereyra M.D. * Start 19-Apr-2015 Active Venlafaxine HCl - 75 MG Oral Tablet TAKE 1 TABLET DAILY. * Quantity: 30 Refills: 1 Maico Russell D.O. * Start Active Allergies and Adverse Reactions Name Dates Details No Known Drug Allergies (Allergy) Status: Active Procedures Procedure Dates Details THYROID STIM. HORMONE 3602 Ordered: 07-Nov-2015 FREE T4 3604 Ordered: 07-Nov-2015 Immunization Name Dates Details Hepatitis B on: 1996 DTaP on: 1996 Hepatitis B on: 1996 IPV on: 1996 IPV on: 1996 DTaP on: 1996 DTaP on: 1996 Hepatitis B on: 1996 DTaP on: 16-Feb-1997 MMR on: 16-Feb-1997 DTaP on: 02-Jan-2001 IPV on: 02-Jan-2001 MMR on: 02-Jan-2001 Varicella on: 02-Jan-2001 Tdap (Adacel) Lot #: [id number] on: 01-Dec-2013 Family History Name Dates Details Family history of malignant neoplasm of kidney (V16.51, Z80.51) Status: Active Name Dates Details No pertinent family history Status: Active Social History Name Dates Details - Status: Name Dates Details Never smoker Vital Signs Date Test Result Details 26-Dec-2015 15:29 BP Systolic 144 mm[Hg] Status: Comments: Location: ; Position: BP Diastolic 88 mm[Hg] Status: Comments: Location: ; Position: Heart Rate 82 /min Status: Comments: Location: ; Weight 152 lb Status: Results Date Description Value Details Results not documented Plan of Care Name Dates Details Planned Observations Planned Goals not documented Planned Encounters Appointment; Provider: Maico Russell D.O. On 30-Apr-2016 15:00 Interventions Provided Medication Changes* Venlafaxine HCl - 75 MG Oral Tablet - Renew Instructions Name Dates Details Instructions not documented Encounters Appointment; Maico Russell D.O. Encounter Diagnosis: Problem not documented On 27-Nov-2015 14:00 Appointment; Maico Russell D.O. Encounter Diagnosis: Problem not documented On 09:45 Appointment; Maico Russell D.O. Encounter Diagnosis: Problem not documented On 13:00 Appointment; Dejuan Pereyra M.D. Encounter Diagnosis: Problem not documented On 14:15 Appointment; Zane Drummond M.D.|Josiah|Viola,AIDEN|Viola,AIDEN, Encounter Diagnosis: Problem not documented On 26-Apr-2015 13:00 Appointment; Dejuan Pereyra M.D. Encounter Diagnosis: Problem not documented On 11-Apr-2015 11:00 Appointment; Dhruv Nickerson M.D. Encounter Diagnosis: Problem not documented On 03-Apr-2015 15:00 Appointment; Dhruv Nickerson M.D. Encounter Diagnosis: Problem not documented On 15-Mar-2015 14:45 Appointment; Dhruv Nickerson M.D. Encounter Diagnosis: Problem not documented On 07-Feb-2015 11:15 Appointment; Dhruv Nickerson M.D. Encounter Diagnosis: Problem not documented On 11-Jan-2015 14:45 Appointment; Dhruv Nickerson M.D. Encounter Diagnosis: Problem not documented On 13:45 Appointment; Dejuan Pereyra M.D. Encounter Diagnosis: Problem not documented On 22-Feb-2014 10:15 Appointment; Dejuan Pereyra M.D. Encounter Diagnosis: Problem not documented On 18-Jan-2014 10:15 Appointment; Dejuan Pereyra M.D. Encounter Diagnosis: Problem not documented On 05-Jan-2014 15:30 Appointment; Dejuan Pereyra M.D. Encounter Diagnosis: Problem not documented On 29-Dec-2013 15:30"
--- OUTSIDE RECORDS SUMMARY | 2016-07-13 18:10 | XMS REPORT | Summary of Care ---
Author Author Dejuan Pereyra M.D. Organization Unknown Address Unknown Phone Unavailable Care Team Providers Care Cream Beater Name Role Phone Marcin Nickerson Unavailable Unavailable Unavailable Unavailable Functional Status Functional Status Health Issues* Name Dates Details No known functional status health issues Status: Cognitive Status Health Issues* Name Dates Details No known cognitive status health issues Status: Problems Name Dates Details Costochondritis, acute (733.6, M94.0) Status: Active Supervision of normal first (V22.0, Z34.00) Status: Active Medications Name Dates Details /Folic Acid Oral Tablet TAKE 1 TABLET DAILY. Quantity: 30 Tablet * Started Active Allergies and Adverse Reactions Name Dates Details No Known Drug Allergies Status: Active Procedures Procedure Dates Details Surgical history not documented OBSTETRIC PANEL 2130 Urinalysis, Reflex to Microscopic or Culture PRN 8005 Vaginitis Panel ( Trichomonas, Gardnerella, Gege sp.) 5615 Chlamydia/GC Amplification 137423 OB Dept- Ultrasound Screening Immunization Name Dates Details Hepatitis B DTaP Hepatitis B IPV IPV DTaP DTaP Hepatitis B DTaP MMR DTaP IPV MMR Varicella Social History Smoking Status* Unknown if ever smoked Vital Signs Date Test Result Details 13:45 BP Systolic 122 mm[Hg] Status: BP Diastolic 84 mm[Hg] Status: Weight 145 lb Status: 13:38 BP Systolic 122 mm[Hg] Status: BP Diastolic 84 mm[Hg] Status: Weight 145 lb Status: 10:03 BP Systolic 106 mm[Hg] Status: BP Diastolic 60 mm[Hg] Status: Weight 146 lb Status: Height 65 in Status: Body Mass Index Calculated 24.3 kg/m2 Status: Body Surface Area Calculated 1.73 Status: Results Date Description Value Details Resulted on: 03-Sep-2013 11:31 SERUM TEST 8020 SERUM TEST Positive Range: Negative=Abnormal Comments: Internal Control: Acceptable----- 13:47 CBC w/ Auto Diff 7150 WBC 8.8 K/uL Range: 4.5-11.0=Better RBC 3.64 mil/uL Range: 3.60-5.00=Better HGB 12.7 g/dL Range: 12.0-16.0=Better HCT 35.3 % Range: 36.0-48.0=Below low threshold MCV 97.1 fL Range: 80.0-99.0=Better MCH 34.9 pg Range: 27.3-32.5=Above high threshold MCHC 36.0 % Range: 32.0-36.0=Better RDW 13.6 % Range: 11.6-14.8=Better PLATELETS 283 K/uL Range: 150-400=Better MPV 6.7 fL Range: 6.0-11.0=Better %NEUTRO 77.1 % Range: 37.0-80.0=Better %LYMPHS 15.6 % Range: 13.0-50.0=Better %MONO 4.4 % Range: 0.0-12.0=Better %EOS 1.0 % Range: 0.0-7.0=Better %BASO 0.4 % Range: 0.0-2.5=Better %FANY 1.5 % Range: 0.0-5.0=Better NEUTRO 6.8 K/uL Range: 2.0-6.9=Better LYMPHS 1.4 K/uL Range: 0.6-3.4=Better MONOS 0.4 K/uL Range: 0.0-0.9=Better EOS 0.1 K/uL Range: 0.0-0.7=Better BASO 0.0 K/uL Range: 0.0-0.2=Better Plan of Care Instructions* Instructions not documented Planned Observations* Name Dates Details Planned Goals not documented Goal Planned Encounters* Appointment; Provider: Dejuan Pereyra On 10:30 Instructions * No Known Instructions Encounters Appointment; Dejuan Pereyra Encounter Diagnosis: Problem not documented On 13:00 Appointment; Dejuan Pereyra Encounter Diagnosis: Problem not documented On 10:00 Appointment; Maico Russell Encounter Diagnosis: Problem not documented On 17-Jun-2013 09:30 Appointment; Dhruv Nickerson Encounter Diagnosis: Problem not documented On 27-Nov-2012 15:00 Appointment; Janett Nicole Encounter Diagnosis: Problem not documented On 21-May-2012 08:30 Appointment; Dhruv Nickerson Encounter Diagnosis: Problem not documented On 06-Mar-2012 14:15
--- OUTSIDE RECORDS SUMMARY | 2016-07-13 18:10 | XMS REPORT ---
Author Author [facility] Organization Unknown Address Unknown Phone Unavailable Care Team Providers Care Orthotic Finish Grinding Technician Name Role Phone MD TAHMINA, SHERRI WALTON Unavailable Reason For Visit Chief Complaint VOMITING, DIAHREA, CHILLS Social History Functional Status Vital Signs Results Problems Encounter Diagnosis No relevant problems exist. Additional Problems * Comment:Problem resolved by Soarian Workflow upon Discharge, Status:Resolved. Encounters Encounter Diagnosis No relevant problems exist. Plan of Care Procedures * Completed Procedure Code: 73.59 Procedure Name: not valued, on 01/07/2014 12: 00 AM * Completed Procedure Code: 73.4 Procedure Name: not valued, on 01/07/2014 12: 00 AM * Completed Procedure Code: 73.59 Procedure Name: not valued, on 01/07/2014 12: 00 AM * Completed Procedure Code: 73.4 Procedure Name: not valued, on 01/07/2014 12: 00 AM Immunizations No immunizations administered or ordered. Hospital Course Hospital Discharge Instructions Allergies, Adverse Reactions, Alerts * Latex Allergy has not been assessed. * IV Contrast Allergy has not been assessed. * No Known Drug Allergies. Medication Medication reconciliation has not been performed.
--- OUTSIDE RECORDS SUMMARY | 2016-07-13 18:10 | XMS REPORT | Summary of Care ---
Author Author Cosme Kovacs M.D. Organization Unknown Address Unknown Phone Unavailable Care Team Providers Care Take Off Man Name Role Phone Bethanie Rod, Tima Unavailable Unavailable Rad Pereyra M.D. Unavailable Unavailable Maico Russell [...] Status: Active Dysuria (788.1, R30.0) Status: Active Pelvic pain (R10.2) Status: Active Encounter for prescription for intravaginal contraceptive (V25.49, Z30.018) Status: Active Urinary frequency (788.41, R35.0) Status: Active Vaginal odor (625.8, N89.8) Status: Active Yeast vaginitis (112.1, B37.3) Status: Active PID (acute pelvic inflammatory disease) (614.3, N73.0) Status: Active Diminished libido (799.81, R68.82) Status: Active Night sweats (780.8, R61) Status: Active Palpitations (785.1, R00.2) Status: Active Depression with anxiety (300.4, F41.8) Status: Active Medications Name Dates Details NuvaRing 0.12-0.015 MG/24HR Vaginal Ring INSERT 1 RING VAGINALLY FOR 3 WEEKS THEN 1 WEEK OFF. Quantity: 3 Dejuan Pereyra M.D. * Start 19-Apr-2015 Active Venlafaxine HCl - 75 MG Oral Tablet Take one tablet by mouth daily * Quantity: 14 Refills: 0 Maico Russell D.O. * Start Active Clotrimazole-Betamethasone 1-0.05 % External Cream APPLY AND RUB IN A THIN FILM TO AFFECTED AREAS TWICE DAILY.(AM AND PM). * Quantity: 1 Refills: 0 Thode MLuann, Cosme Tima * Start 13-Jul-2016 Active 45 GM Tube Allergies and Adverse Reactions Name Dates Details No Known Drug Allergies (Allergy) Status: Active Past Medical History Name Dates Details Depression with anxiety (300.4, F41.8) Status: Active Diminished libido (799.81, R68.82) Status: Active Night sweats (780.8, R61) Status: Active Palpitations (785.1, R00.2) Status: Active PID (acute pelvic inflammatory disease) (614.3, N73.0) Status: Active Procedures Procedure Dates Details Procedures not documented Immunization Name Dates Details Hepatitis B on: 1996 DTaP on: 1996 Hepatitis B on: 1996 IPV on: 1996 IPV on: 1996 DTaP on: 1996 DTaP on: 1996 Hepatitis B on: 1996 DTaP on: 16-Feb-1997 MMR on: 16-Feb-1997 DTaP on: 02-Jan-2001 IPV on: 02-Jan-2001 MMR on: 02-Jan-2001 Varicella on: 02-Jan-2001 Tdap (Adacel) Lot #: [id number] on: 01-Dec-2013 Family History Name Dates Details Family history of malignant neoplasm of kidney (V16.51, Z80.51) Status: Active Name Dates Details No pertinent family history Status: Active Social History Name Dates Details - Status: Name Dates Details Never smoker Vital Signs Date Test Result Details 12-Jul-2016 17:43 BP Systolic 110 mm[Hg] Status: Comments: Location: ; Position: BP Diastolic 66 mm[Hg] Status: Comments: Location: ; Position: Temperature 98.6 f Status: Comments: Method: Heart Rate 100 /min Status: Comments: Location: ; Height 63 in Status: Weight 144 lb Status: Physical Findings 98 Status: Comments: O2 Saturation Body Mass Index Calculated 25.51 kg/m2 Status: Body Surface Area Calculated 1.68 m2 Status: 12-Jul-2016 16:47 BP Systolic 138 mm[Hg] Status: Comments: Location: ; Position: BP Diastolic 88 mm[Hg] Status: Comments: Location: ; Position: Temperature 98.8 f Status: Comments: Method: Heart Rate 108 /min Status: Comments: Location: ; Physical Findings 98 Status: Comments: O2 Saturation Results Date Description Value Details Results not documented Plan of Care Name Dates Details Planned Observations Planned Goals not documented Planned Encounters Appointment; Provider: Dejuan Pereyra M.D. On 13:00 Interventions Provided Medication Changes* Clotrimazole-Betamethasone 1-0.05 % External Cream - Start Instructions Name Dates Details Instructions not documented Encounters Appointment; Zane Drummond M.D.,AIDEN, Encounter Diagnosis: Problem not documented On 14-May-2016 14:00 Appointment; Maico Russell D.O. Encounter Diagnosis: Problem not documented On 30-Apr-2016 15:00 Appointment; Maico Russell D.O. Encounter Diagnosis: Problem not documented On 26-Dec-2015 15:45 Appointment; Maico Russell D.O. Encounter Diagnosis: Problem not documented On 27-Nov-2015 14:00 Appointment; Maico Russell D.O. Encounter Diagnosis: Problem not documented On 09:45 Appointment; Maico Russell D.O. Encounter Diagnosis: Problem not documented On 13:00 Appointment; Dejuan Pereyra M.D. Encounter Diagnosis: Problem not documented On 14:15 Appointment; Zane Drummond M.D., FACS, Encounter Diagnosis: Problem not documented On 26-Apr-2015 [...]
--- OUTSIDE RECORDS SUMMARY | 2016-07-13 18:10 | XMS REPORT | Summary of Care ---
Author Author Maico Russell D.O. Organization Unknown Address [address], [place] [id number] Phone Unavailable Care Team Providers Care Wildland Fire Fighter Specialist Name Role Phone Rad Pereyra M.D. Unavailable [...] * Start 19-Apr-2015 Active Venlafaxine HCl - 37.5 MG Oral Tablet TAKE ONE TABLET BY MOUTH DAILY, MAY INCREASE TO TWO TABLETS DAILY AFTER 1 WEEK IF DESIRED * Quantity: 60 Refills: 0 Maico Russell D.O. * Start 30-Nov-2015 Active Allergies and Adverse Reactions Name Dates [...] Varicella on: 02-Jan-2001 Tdap (Adacel) Lot #: [id number] on: 01-Dec-2013 Family History Name Dates Details [...] Details Planned Observations Planned Goals not documented Interventions Provided Labs/Procedures/Imaging* FREE T4 3604; To be Done: 26 Dec 2015 * THYROID STIM. HORMONE 3602; To be Done: 26 Dec 2015 Instructions Name Dates Details Instructions not documented Encounters Appointment; Maico Russell D.O. Encounter Diagnosis: Problem not documented On 27-Nov-2015 14:00 Appointment; Maico Russell D.O. Encounter Diagnosis: Problem not documented On 09:45 Appointment; Maico Russell D.O. Encounter Diagnosis: Problem not documented On 13:00 Appointment; Dejuan Pereyra M.D. Encounter Diagnosis: Problem not documented On 14:15 Appointment; Zane Drummond M.D.|Josiah|AIDEN Rod|Viola,AIDEN, Encounter Diagnosis: Problem not documented On 26-Apr-2015 [...]
[2016-07-13 18:13] VITALS: Ht 160 cm; Wt 64.5 kg
[2016-07-13] MEDS ORDERED: VENL75TA4 PO (19:11)
[2016-07-13] MEDS ORDERED: [UNRECOGNIZED DRUG - OTHER] (19:11)
[2016-07-13] MEDS ORDERED: CLOT15CR5 TOP (19:11)
--- NOTE | 2016-07-13 19:36 | ERPDOC ---
Departure Disposition Decision Date: Jul 13, 2016 Disposition Decision Time: 22:50 (MAC SKELTON APRN) Disposition: 01 DISCHARGED HOME, SELF-CARE Impression Impression (INES LOMAS MD) Impression: Primary Impression: Genital herpes Herpes simplex infection site: vulvovaginitis Qualified Codes: A60.04 - Herpesviral vulvovaginitis Severity: Moderate (MAC SKELTON APRN) Condition: Stable Seen By: Mid-level only (MAC SKELTON APRN) Patient Instructions: Genital Herpes Simplex (ED) Problems/Meds/Labs Reviewed?: Yes Medications reviewed and manag: Yes (MAC SKELTON APRN) Additional Instructions: Your urine did not show any infection. Chlamydia and gonorrhea screening was negative. Your exam is consistent with genital herpes. Take Valtrex 1000mg twice daily for 10 days. You may take [place] 5/325mg 1-2 tabs every 6 hours as needed for pain. Avoid unprotected sexual intercourse. Use marcos bottle to flush cool water over vulva to prevent pain with urination. You may use Vaseline or to coat irritated tissue. Follow with your PCP as needed. Follow up care ordered?: Yes Mental Status: Alert, Oriented (MAC SKELTON APRN) Scripts Valacyclovir HCl (Valtrex) 1,000 Mg Tablet 1 TAB-CAP PO BID for 10 Days Prov: MCA SKELTON APRN 07/13/16 Hydrocodone/Acetaminophen ([place] 5-325 Tablet) 5-325 Tablet 1-2 TAB PO Q6HPRN for PAIN, #30 TAB Prov: MAC SKELTON APRN 07/13/16 HPI - Female General Chief Complaint: Female Urogenital Problems Stated Complaint: VAGINAL RASH Time Seen by Provider: 19:35 Source: patient, family Exam Limitations: no limitations (INES LOMAS MD) Time Seen by Provider: 20:45 (MAC SKELTON APRN) HPI - Female Initial Comments Patient is a 21-year-old female presents emergency room for evaluation of vaginal pain and burning on urination and itching. Patient's had symptoms now for 5 days, was evaluated yesterday in the clinic, states that it no cultures did know laboratories did not really urinalysis. Patient was treated for fungal infection, told if it did not improve to follow-up with her AGRICULTURAL ENGINEERING TECHNOLOGIST on Friday. Patient states pain has not gotten any better the last 24 hours and she "can't take it anymore". Patient does state that she does have a history of having PID and chlamydia back in 2012, is currently sexually active with a partner for the last 3 months. Patient does use NuvaRing for control. Occurred At: home Onset: Gradual, Getting worse Duration: other (5 days) Pain Scale: Now & Worst: 9/10 Sexual [place] History: less than 2 months ago, single partner (INES LOMAS MD) Severity/Quality: aching, burning Location: suprapubic, vaginal Sexual [place] History: less than 2 months ago, single partner Associated Symptoms: dysuria, urinary frequency, DENIES: abdominal pain, lower back pain, nausea/vomiting (MAC SKELTON APRN) Allergies: Coded Allergies: No Known Allergies (Unverified , 07/13/16) Past History Past Medical History Female: PID, other (Chlamydia) (INES LOMAS MD) Metabolic: DENIES: diabetes Cardiac: DENIES: angina Respiratory: DENIES: asthma GI: DENIES: ulcers Female: DENIES: kidney stones, pyelonephritis, renal insufficiency Neurological: DENIES: seizures Musculoskeletal: DENIES: rheumatoid arthritis Psychological: depression (MAC SKELTON APRN) Surgical History Denies Surgeries (MAC SKELTON APRN) Family History Family PMH: FOUND: other (noncontributory) (MAC SKELTON APRN) Social History Substance Use Type: does not use Alcohol Intake: none (INES LOMAS MD) Review of Systems Constitutional Constitutional: DENIES: appetite decrease, chills, dizziness, fever, weakness ( INES LOMAS MD) Constitutional: DENIES: chills, dizziness, fever, weakness (MAC SKELTON APRN) Eyes Vision: DENIES: double vision, loss of visual white (INES LOMAS MD) General: DENIES: erythema, exudate Lids/Accessories: DENIES: erythema, swelling Vision: DENIES: blurring (MAC SKELTON APRN) ENMT Sinuses: DENIES: congestion (INES LOMAS MD) Ears: DENIES: pain Hearing: DENIES: hearing loss Sinuses: DENIES: congestion, rhinorrhea Mouth/Throat: DENIES: sore throat (MAC SKELTON APRN) Cardiovascular Cardiac: DENIES: chest pain, murmur Rhythm/Rate: DENIES: palpitations (MAC SKELTON APRN) Pulmonary Respiratory: DENIES: cough (INES LOMAS MD) Respiratory: DENIES: cough, dyspnea (MAC SKELTON APRN) GI Upper Abdomen: DENIES: pain Lower Abdomen: DENIES: pain (INES LOMAS MD) Upper Abdomen: DENIES: nausea, pain, vomiting Lower Abdomen: DENIES: blood in stool, diarrhea, pain (MAC SKELTON APRN) General: burning, pain Female: burning, itching, vaginal discharge (INES LOMAS MD) General: burning, dysuria, pain Female: burning, itching, vaginal discharge (MAC SKELTON APRN) Musculoskeletal General: DENIES: cramps, pain, weakness (INES LOMAS MD) General: DENIES: joint pain, pain, tenderness (MAC SKELTON APRN) Integumentary Skin: DENIES: color change, itching, rash (INES LOMAS MD) Skin: DENIES: color change, itching, rash (MAC SKELTON APRN) Neurological General: DENIES: ataxia, change in strength, numbness, paralysis/paresis, weakness (MAC SKELTON APRN) Psychiatric Psychiatric: DENIES: anxiety, depression, nervousness (MAC SKELTON APRN) Endocrine Endocrine: DENIES: heat/cold intolerance (INES LOMAS MD) Hematologic/Lymphatic Hematologic/Lymphatic: DENIES: anemia (INES LOMAS MD) Physical Exam General General Nourishment: well nourished, well developed (INES LOMAS MD) General Nourishment: well nourished, well developed, adult General Body Habitus: well groomed Vitals and Pain First Documented Vital Signs Date Time Temp Pulse Resp B/P Pulse Ox O2 Delivery O2 Flow Rate FiO2 07/13/16 18:13 98.6 92 16 145/87 99 Room Air (MAC SKELTON APRN) Vitals and Pain Weight: Kilograms: 64.500 Height (feet): 5 Height (inches): 3.00 Triage Pain Scale: (INES LOMAS MD) Eyes (brief) Eyes Brief: found: EOMI (MAC SKELTON APRN) ENMT (brief) ENMT Brief: FOUND: mucosa moist, NOT FOUND: nasal exudate, nasal swelling ( MAC SKELTON APRN) Neck (brief) Neck: FOUND: trachea midline (MAC SKELTON APRN) Respiratory (brief) Respiratory: FOUND: clear all white, equal bilaterally, NOT FOUND: rales, wheezes (INES LOMAS MD) Respiratory: FOUND: clear all white, equal bilaterally (MAC SKELTON APRN) Cardiovascular (brief) Cardiac: FOUND: regular rate, regular rhythm Capillary Refill: <2 sec (INES LOMAS MD) Cardiac: FOUND: regular rate, regular rhythm (MAC SKELTON APRN) Abdomen (brief) Abdominal Brief: FOUND: bowel normo active x4, soft, NOT FOUND: distended, tender (INES LOMAS MD) Abdominal Brief: NOT FOUND: tender (MAC SKELTON APRN) Vulva: FOUND: erythema, lesion (vesiciles and open vesicles consistent with genital herpes), NOT FOUND: blood, discharge, swelling (MAC SKELTON APRN) Musculoskeletal (brief) Musculoskeletal Brief: NOT FOUND: spasm, tenderness (INES LOMAS MD) Musculoskeletal Brief: NOT FOUND: deformity, loss of motion (MAC SKELTON APRN) Integumentary (brief) Integumentary Brief: FOUND: dry, pink, warm (INES LOMAS MD) Integumentary Brief: FOUND: dry, pink, warm (MAC SKELTON APRN) Neurologic (brief) Neurological Brief: FOUND: CN w/o gross def to obs, motor-no gross deficits, sensory-no gross deficits (INES LOMAS MD) Neurological Brief: FOUND: motor-no gross deficits, sensory-no gross deficits ( MAC SKELTON APRN) Psychiatric (brief) Psychiatric Brief: FOUND: alert, oriented (INES LOMAS MD) Psychiatric Brief: FOUND: alert, oriented (MAC SKELTON APRN) Differential Diagnoses Considering: Bartholin's Cyst/Abscess, IBS, IBD, PID, New Diagnosis, , Pyelonephritis, UTI, Bacterial Vaginitis, Yeast Vaginitis, Trichomonas Vaginitis, Other (STD) (INES LOMAS MD) Considering: PID, Pyelonephritis, UTI, Bacterial Vaginitis, Yeast Vaginitis, Trichomonas Vaginitis, Other (Herpes) (MAC SKELTON APRN) Progress Results/Orders Orders Procedure Category Date Status Time Ketorolac (Toradol) PHA 07/13/16 Complete 19:45 Ua, Dip Wreflex LAB 07/13/16 Complete Microsc & Sheet Metal Former 19:39 LAB 07/13/16 Complete Qualitative, Urine 19:39 Gc - Chlamydia Pcr LAB 07/13/16 Complete 20:35 Valacyclovir (Valtrex) PHA 07/13/16 Complete 23:15 Hydrocodone/Apap PHA 07/13/16 Complete 5/325 Prepack ([place] 5 23:15 (MAC SKELTON APRN) Lab Results Laboratory Tests Test 07/13/16 20:42 Urine Collection Type Voided-not cc-midstr Urine Color Yellow Urine Turbidity Clear Urine pH 6.5 Urine Specific [place] 1.025 Urine Protein Negative Urine Glucose (UA) Negative Urine Ketones Negative Urine Blood Trace-lysed Urine Nitrite Negative Urine Bilirubin Negative Urine Urobilinogen 1.0EU/DL Urine Leukocyte Esterase Negative Urinalysis Comment Microscopic not ind. Urine Test Negative Chlamydia trachomatis DNA (PCR) Negative N. gonorrhoeae DNA Specimen Source Urine Neisseria gonorrhoeae DNA (PCR) Negative (MAC SKELTON APRN) Lab Results Laboratory Tests Test 07/13/16 20:42 Urine Collection Type Voided-not cc-midstr Urine Color Yellow Urine Turbidity Clear Urine pH 6.5 Urine Specific [place] 1.025 Urine Protein Negative Urine Glucose (UA) Negative Urine Ketones Negative Urine Blood Trace-lysed Urine Nitrite Negative Urine Bilirubin Negative Urine Urobilinogen 1.0EU/DL Urine Leukocyte Esterase Negative Urinalysis Comment Microscopic not ind. Urine Test Negative Chlamydia trachomatis DNA (PCR) Negative N. gonorrhoeae DNA Specimen Source Urine Neisseria gonorrhoeae DNA (PCR) Negative (INES LOMAS MD) Medications Current ED Medications Ketorolac Tromethamine (Toradol) 60 mg O ONCE IM Last administered on t 19:51; Start 07/13/16 at 19:45; Stop 07/13/16 at 19:46; Status DC Valacyclovir HCl (Valtrex) 1,000 mg O ONCE PO Last administered on 07/13/16 23 :43; Start 07/13/16 at 23:15; Stop 07/13/16 at 23:16; Status DC Acetaminophen/ Hydrocodone Bitart (NORCO 5 (PrePack)) 1 pack O ONCE SENT HOME Last administered on 07/13/16t 23:43; Start 07/13/16 at 23:15; Stop 07/13/16 at 23: 16; Status DC (MAC SKELTON APRN) Progress Progress Patient decline pelvic exam. Says she would prefer to wait on results of GC. I discussed with patient that GC was negative and urine did not indicate an infection. Patient still declines pelvic due to concern about pain however agrees to have provider exam vulva. I discussed with patient that her exam findings were consistent with genital herpes. I discussed treatment plan, follow up with PCP as needed and return precautions. Patient instructed not to have unprotected sexual intercourse. Patient verbalized understanding of treatment plan. (MAC SKELTON APRN) INES LOMAS MD Jul 13, 2016 19:35 MAC SKELTON APRN Jul 13, 2016 22:54
--- OUTSIDE RECORDS SUMMARY | 2016-07-13 19:44 | XMS REPORT ---
Author Author GENERATED, SYSTEM Organization Unknown Address Unknown Phone Unavailable Care Team Providers Care Braille Duplicating Machine Operator Name Role Phone MD TAHMINA, SHERRI WALTON [...]
--- OUTSIDE RECORDS SUMMARY | 2016-07-13 19:44 | XMS REPORT | Continuity of Care Document ---
Author Author [facility] Organization [facility] Address Unknown Phone Unavailable Allergies Medications Problems Procedures Results Encounters ACCT No. Visit Date/Time Discharge Status Pt. Type Provider Facility Loc./Unit Complaint [id number] 02/10/2014 00:00:00 2013 00:00:00 CAN Chey Sommers MD, Sera Schulte [facility] [id number]
--- OUTSIDE RECORDS SUMMARY | 2016-07-13 19:44 | XMS REPORT ---
Author Author GENERATED, SYSTEM Organization Unknown Address Unknown Phone Unavailable Care Team Providers Care Metal Pattern Maker Name Role Phone MD TAHMINA, SHERRI WALTON [...] PM* Status: Final Result URINALYSIS Specimen Number: [id number] Sample Collection Date/Time: 01/07/2014 12:50 PM Specimen [...] - INFANT BONE SURVEY <12MO CPT Code(s): 31670-; ; ; INDICATION / CLINICAL HISTORY: [place], [...] the responsibility of the patient or patient c s s representative to confirm the list of medications [...] KETOROLAC. GIVE NEEDED FOR PAIN. * HYDROcodone-acetaminophen ([place]) 5 mg-325 mg Tablet, Ordered By: BERRY PIRES RN Directions: 1 tablet oral every four hours PRN pain Continued medications* PNV Stopped medications* None
[2016-07-13] MEDS ORDERED: KETOROLAC 60mg/2ml INJECTION IM ONE (19:45)
--- NOTE | 2016-07-13 20:30 | NUR ---
OUTPUT PT ESCORTED TO RESTROOM - ATTEMPTED TO VOID. PT UNABLE TO VOID STATING IT INFANTE TOO BAD. PT REQUESTS TO RETURN TO ROOM. DR NOTIFIED. ORDERED TO STRAIGHT CATH PT TO OBTAIN UA.
--- NOTE | 2016-07-13 20:40 | NUR ---
STRAIGHT CATH UA OBTAIN VIA STRAIGHT CATH. BLADDER EMPTIED.
[2016-07-13 20:47] LABS: BLOOD, URINE TRACE-LYSED (NEGATIVE); COLOR,URINE YELLOW (YELLOW); LEUKOCYTE ESTERASE ,URINE NEGATIVE (NEGATIVE); NITRITE,URINE NEGATIVE (NEGATIVE)
[2016-07-13] MEDS ORDERED: HYDROCODONE/APAP 5/325 (PrePack) SENT HOME ONE (23:15)
[2016-07-13] MEDS ORDERED: VALACYCLOVIR 500 MG TABLET PO ONE (23:15)
[2016-07-13] MEDS ORDERED: HYDR-4246 PO (23:41)
[2016-07-13] MEDS ORDERED: VALA10002 PO (23:41)
[2016-07-13 23:50] VITALS: BP 144/87; PULSE 98; RESP 12; TEMP 99.5; O2SAT 96
--- NOTE | 2016-07-13 23:50 | NUR ---
DEPART PT GIVEN DI FOR GENITAL HERPES SIMPLEX, NORCO, VALTREX, F/U. PREPAK/RX PROVIDED FOR NORCO AND VALTREX. PT VERBALIZES UNDERSTANDING OF DI. QUESTIONS ASKED/ANSWERED - DENIES FURTHER QUESTIONS/NEEDS AT THIS TIME. PERSONAL BELONGINGS GATHERED. PT AMBULATED/ESCORTED TO ED EXIT - GAIT STABLE, NO SIGN OF DISTRESS.
== END 2016-07-13 23:50 | disposition home or self-care (01) ==
LOC: ED 18:04
DX: A60.04 Herpesviral vulvovaginitis (principal)
CPT/HCPCS: 51701; 81003; 81025; 87491; 87591; 96372; 99283; J1885